=== PATIENT | female | born 1960 | race Caucasian/White ===

== ENCOUNTER 2023-05-18 17:20 | Emergency (ER) | payer OTHER ==
[~2023-05-18] VITALS: Ht 167.6 cm; Wt 81.2 kg
[2023-05-18 17:31] VITALS: BP 124/79
[2023-05-18] MEDS ORDERED: EUTHYROX125 MC1 PO (17:53)
[2023-05-18] MEDS ORDERED: Ventolin/Prove6.7 GM INH (17:54)
[2023-05-18] MEDS ORDERED: FLOVENT HFA12 GM INH (17:54)
== END 2023-05-18 18:30 | disposition home or self-care (01) ==
LOC: ER 17:20
DX: S40.022A Contusion of left upper arm, initial encounter (principal); W01.0XXA Fall on same level from slipping, tripping and stumbling without subsequent striking against object, initial encounter; Z79.899 Other long term (current) drug therapy
CPT/HCPCS: 29125; 73060; 99283-25